=== PATIENT | male | born 1930 | race Caucasian/White ===

== ENCOUNTER 2019-04-12 14:03 | Inpatient (IN) | payer BC ==
[~2019-04-12] VITALS: Ht 177.8 cm; Wt 92.6 kg
[2019-04-12 15:03] LABS: BASOPHIL % 0.1 % (0-2); PLATELET COUNT 334 x10^3mcL (130-400); RED CELL DISTRIBUTION WIDTH 14.1 % (11.5-14.5)
[2019-04-12 15:10] LABS: CALCIUM 8.6 mg/dL (8.5-10.1); CARBON DIOXIDE 25.5 mmol/L (21-32); CHLORIDE SERUM 95 mmol/L (98-107); CREATININE SERUM 1.4 mg/dL (0.7-1.3); GLUCOSE SERUM 138 mg/dL (74-106); POTASSIUM SERUM 4.3 mmol/L (3.5-5.1); SODIUM SERUM 129 mmol/L (136-145)
[2019-04-12 15:23] LABS: ALBUMIN 3.7 g/dL (3.4-5.0); ALKALINE PHOSPHATASE 94 U/L (46-116); ALT/SGPT 19 U/L (16-63); AST/SGOT 9 U/L (15-37); LIPASE 397 IU/L (73-393); T4(THYROXINE) 8.5 ug/dL (4.7-13.3); TOTAL PROTEIN, SERUM 6.8 g/dL (6.4-8.2)
[2019-04-12 17:27] LABS: microscopic required? YES; urine erythrocyte TRACE (NEGATIVE)
[2019-04-12 18:32] LABS: AMPHETAMINE QUAL UR NONE DETECTED (See below)
[2019-04-12] MEDS ORDERED: LEVOTHYROXINE0.1 M2 PO (19:36)
[2019-04-12] MEDS ORDERED: LOSARTAN POTASS50 M1 PO (19:37)
[2019-04-12] MEDS ORDERED: TAMSULOSIN HCL0.4 MG PO (19:48)
[2019-04-12] MEDS ORDERED: DDAVP0.1 MG PO (19:51)
[2019-04-12] MEDS ORDERED: AMOXICILLIN AND1 TA2 (19:52)
[2019-04-12] MEDS ORDERED: CEFDINIR300 M1 (19:52)
[2019-04-12] MEDS ORDERED: PROMETHAZI6.25 MG/5 (19:52)
[2019-04-12] MEDS ORDERED: MOTION SICKNESS25 M4 (19:52)
[2019-04-12] MEDS ORDERED: FLUDROCORTISON0.1 MG PO (19:52)
[2019-04-12] MEDS ORDERED: AZELASTINE205.5 MCG/ (19:53)
[2019-04-12] MEDS ORDERED: NOVAPLUS F0.05 MG/Ac (19:54)
[2019-04-12 20:00] VITALS: BP 148/73
[2019-04-12 20:04] VITALS: Ht 177.8 cm; Wt 92.6 kg
[2019-04-12 20:18] LABS: CALCIUM 8.5 mg/dL (8.5-10.1); CARBON DIOXIDE 26.8 mmol/L (21-32); CHLORIDE SERUM 97 mmol/L (98-107); CREATININE SERUM 1.2 mg/dL (0.7-1.3); GLUCOSE SERUM 134 mg/dL (74-106); POTASSIUM SERUM 4.4 mmol/L (3.5-5.1); SODIUM SERUM 131 mmol/L (136-145)
[2019-04-12 22:00] VITALS: BP 148/73
[2019-04-13 02:21] LABS: CALCIUM 8.6 mg/dL (8.5-10.1); CARBON DIOXIDE 24.1 mmol/L (21-32); CHLORIDE SERUM 97 mmol/L (98-107); CREATININE SERUM 1.1 mg/dL (0.7-1.3); GLUCOSE SERUM 102 mg/dL (74-106); POTASSIUM SERUM 4.4 mmol/L (3.5-5.1); SODIUM SERUM 130 mmol/L (136-145)
[2019-04-13 06:39] LABS: CALCIUM 8.7 mg/dL (8.5-10.1); CARBON DIOXIDE 24.6 mmol/L (21-32); CHLORIDE SERUM 96 mmol/L (98-107); CREATININE SERUM 1.2 mg/dL (0.7-1.3); GLUCOSE SERUM 98 mg/dL (74-106); MAGNESIUM 1.9 mg/dL (1.8-2.4); PHOSPHOROUS 3.2 mg/dL (2.5-4.9); POTASSIUM SERUM 4.4 mmol/L (3.5-5.1); SODIUM SERUM 129 mmol/L (136-145)
[2019-04-13 07:04] LABS: BASOPHIL % 0.1 % (0-2); PLATELET COUNT 310 x10^3mcL (130-400); RED CELL DISTRIBUTION WIDTH 13.8 % (11.5-14.5)
[2019-04-13 09:22] VITALS: BP 147/68
[2019-04-13 13:31] VITALS: BP 161/89
[2019-04-13 17:30] VITALS: BP 164/85
[2019-04-13 19:10] VITALS: BP 103/47
[2019-04-13 20:31] VITALS: BP 107/52
[2019-04-13 20:33] VITALS: BP 107/52
[2019-04-14 06:02] VITALS: BP 163/76; BP 80/35
[2019-04-14 06:19] LABS: BASOPHIL % 0.3 % (0-2); PLATELET COUNT 306 x10^3mcL (130-400); RED CELL DISTRIBUTION WIDTH 13.6 % (11.5-14.5)
[2019-04-14 06:43] LABS: CALCIUM 8.7 mg/dL (8.5-10.1); CARBON DIOXIDE 26.2 mmol/L (21-32); CHLORIDE SERUM 95 mmol/L (98-107); CREATININE SERUM 1.4 mg/dL (0.7-1.3); GLUCOSE SERUM 120 mg/dL (74-106); MAGNESIUM 1.7 mg/dL (1.8-2.4); PHOSPHOROUS 3.3 mg/dL (2.5-4.9); POTASSIUM SERUM 3.9 mmol/L (3.5-5.1); SODIUM SERUM 129 mmol/L (136-145)
[2019-04-14 09:02] VITALS: BP 135/65
[2019-04-14 12:48] VITALS: BP 164/87
[2019-04-14] MEDS ORDERED: LEVAQUIN500 M1 PO (15:50)
[2019-04-14 17:02] VITALS: BP 133/97
[2019-04-14] MEDS ORDERED: ZOF4 PO (17:22)
== END 2019-04-14 17:50 | disposition home or self-care (01) | DRG 391 ==
LOC: ED 14:03 → DU 18:15
PROVIDERS: Emergency Medicine; ADMIT Internal Medicine
DX: K57.32 Diverticulitis of large intestine without perforation or abscess without bleeding (principal); N17.0 Acute kidney failure with tubular necrosis; E87.1 Hypo-osmolality and hyponatremia; E86.1 Hypovolemia; R56.9 Unspecified convulsions; E86.0 Dehydration; I95.9 Hypotension, unspecified; R00.1 Bradycardia, unspecified; T38.895A Adverse effect of other hormones and synthetic substitutes, initial encounter; E23.6 Other disorders of pituitary gland; E03.8 Other specified hypothyroidism; N18.9 Chronic kidney disease, unspecified; Z87.820 Personal history of traumatic brain injury; Z85.46 Personal history of malignant neoplasm of prostate; Z92.3 Personal history of irradiation; Z68.32 Body mass index [BMI] 32.0-32.9, adult; Y92.009 Unspecified place in unspecified non-institutional (private) residence as the place of occurrence of the external cause
CPT/HCPCS: 83880; G0378; J0360; J1956; J2405; J3490; J7030; J7050; Q0092